=== PATIENT | male | born 1985 | race Caucasian/White ===

== ENCOUNTER 2018-05-27 03:38 | Inpatient (IN) | payer OTHER ==
[2018-05-27 04:04] LABS: ADD MAN DIFF? NO
[2018-05-27] MEDS: ONDANSETRON 4 MG INJ IV (04:06)
[2018-05-27] MEDS: SOD CHLORIDE 0.9% 1,000 ML IV ×2 (04:07→16:17)
[2018-05-27 04:11] LABS: WHITE BLOOD COUNT 10.8 10^3/ul (4.8-10.8)
[2018-05-27 04:11] LABS: BASOPHILS % 0.3 % (0.0-2.0); EOSINOPHILS # 0.1 10^3/ul (0.0-0.5); EOSINOPHILS % 0.5 % (0.0-7.0); HEMATOCRIT 49.1 % (42.0-52.0); HEMOGLOBIN 16.3 g/dl (14.0-18.0); LYMPHOCYTES % 27.6 % (15.0-51.0); MEAN CORPUSCULAR HEMOGLOBIN 29.2 pg (29.0-33.0); MEAN CORPUSCULAR HGB CONC 33.2 g/dl (32.0-37.0); MEAN CORPUSCULAR VOLUME 87.8 fl (82.0-101.0); MEAN PLATELET VOLUME 10.2 fl (7.4-10.4); MONOCYTE # 0.6 10^3/ul (0.3-0.9); MONOCYTES % 5.1 % (0.0-11.0); NEUTROPHILS % 65.5 % (39.0-77.0); PLATELET COUNT 262 10^3/UL (140-415); RED BLOOD COUNT 5.59 10^6/ul (4.70-6.10); RED CELL DISTRIBUTION WIDTH 13.2 % (11.5-14.5)
[2018-05-27] MEDS: ALBUTEROL 0.083% (NEB) 2.5 MG/3 ML AMP NEB (04:15)
[2018-05-27] MEDS: IPRATROPIUM (NEB) 0.5 MG/2.5 ML AMP NEB (04:15)
[2018-05-27 04:24] LABS: ALANINE AMINOTRANSFERASE 143 IU/L (13-69); ALBUMIN 4.5 g/dl (3.3-4.9); ALBUMIN/GLOBULIN RATIO 1.45; ALKALINE PHOSPHATASE 101 IU/L (42-121); ANION GAP 17 (5-13); ASPARTATE AMINO TRANSFERASE 115 IU/L (15-46); BILIRUBIN,INDIRECT 0.2 mg/dl (0-1.1); BILIRUBIN,TOTAL 0.2 mg/dl (0.2-1.3); BLOOD UREA NITROGEN 12 mg/dl (7-20); CALCIUM 9.2 mg/dl (8.4-10.2); CARBON DIOXIDE 23 mmol/L (21-31); CHLORIDE 102 mmol/L (97-110); Estimated GFR > 60 mL/min (>60); GLUCOSE 180 mg/dl (70-220); POTASSIUM 3.5 mmol/L (3.5-5.1); SODIUM 142 mmol/L (135-144); TOTAL PROTEIN 7.6 g/dl (6.1-8.1)
[2018-05-27 04:37] LABS: ACETAMINOPHEN < 10.0 ug/ml (10.0-30.0); SALICYLATE < 1.0 mg/dl (5.0-30.0)
[2018-05-27 04:42] LABS: AADO2 Arterial 587.4 mmHg (7.0-24.0); Allen Test ACCEPTAB; Arterial Base Excess -7.4 mmol/L (-3.0-3); Arterial Blood Gas Oxygen Sat 87.5 mmHG (95.0-98.0); Arterial COHb 0.3 % (0.0-3.0); Arterial Fraction of Oxyhgb 86.9 % (93.0-99.0); Arterial HCO3 21.8 mmol/L (22.0-26.0); Arterial MetHb 0.4 % (0.0-1.5); Arterial pCO2 57.9 mmhg (35-45); MODE MASK - NRB; Site Right Radial
[2018-05-27] MEDS: PIPER-TAZO 3.375 GM IV (PMX) 100 ML IVPB (04:55)
[2018-05-27] MEDS: NALOXONE 2 MG SYG IV (04:59)
[2018-05-27] MEDS ORDERED: ACETAMINOPHEN 325 MG TAB PO (05:00)
[2018-05-27] MEDS ORDERED: ONDANSETRON 4 MG INJ IV ×2 (05:00→06:00)
[2018-05-27] MEDS: NALOXONE 2 MG/2 ML SYG 2 MG in DEXTROSE 5% 498 ML IV (05:32)
[2018-05-27] MEDS: VANCOMYCIN 1 GM (PMX) 250 ML IVPB (05:48)
[2018-05-27] MEDS ORDERED: BISACODYL (EC) 5 MG TAB PO (06:00)
[2018-05-27] MEDS ORDERED: ALBUTEROL 0.083% (NEB) 2.5 MG/3 ML AMP NEB (06:00)
[2018-05-27] MEDS ORDERED: IPRATROPIUM (NEB) 0.5 MG/2.5 ML AMP NEB (06:00)
[2018-05-27] MEDS ORDERED: DOCUSATE SODIUM 100 MG CAP PO (06:00)
[2018-05-27] MEDS: PANTOPRAZOLE 40 MG INJ IV (06:36)
[2018-05-27] MEDS: MULTIVITAMINS 10 ML, THIAMINE 100 MG, FOLIC ACID 1 MG in SOD CHLORIDE 0.9% 1,000 ML IVPB ×2 (06:37→08:16)
[2018-05-27 06:43] LABS: ADD UMIC YES; UR ASCORBIC ACID 40 mg/dL (NEGATIVE); UR BILIRUBIN (Dip) NEGATIVE (NEGATIVE); UR BLOOD (Dip) NEGATIVE (NEGATIVE); UR CLARITY SLIGHTLY CLOUDY (CLEAR); UR COLOR YELLOW (YELLOW); UR GLUCOSE (Dip) NEGATIVE (NEGATIVE); UR KETONES (Dip) NEGATIVE (NEGATIVE); UR LEUKOCYTE ESTERASE (Dip) NEGATIVE Leu/ul (NEGATIVE); UR MUCUS FEW /HPF (NONE SEEN); UR NITRITE (Dip) NEGATIVE (NEGATIVE); UR RBC 0 /HPF (0-5); UR SPECIFIC GRAVITY (Dip) 1.023 (1.003-1.030); UR TOTAL PROTEIN (Dip) 1+ mg/dl (NEGATIVE); UR UROBILINOGEN (Dip) NEGATIVE (NEGATIVE); UR WBC 1 /HPF (0-5)
[2018-05-27 06:59] LABS: AMPHETAMINE/METHAMPHETAMINE Negative (NEGATIVE); BARBITURATES Negative (NEGATIVE); BENZODIAZEPINES Negative (NEGATIVE); CANNABINOIDS Negative (NEGATIVE); OPIATES Negative (NEGATIVE)
[2018-05-27 07:10] LABS: COCAINE Positive (NEGATIVE)
[2018-05-27 07:33] LABS: AADO2 Arterial 580.5 mmHg (7.0-24.0); Allen Test ACCEPTAB; Arterial Base Excess -3.9 mmol/L (-3.0-3); Arterial Blood Gas Oxygen Sat 92.6 mmHG (95.0-98.0); Arterial COHb 0.3 % (0.0-3.0); Arterial HCO3 24.5 mmol/L (22.0-26.0); Arterial MetHb 0.3 % (0.0-1.5); Arterial pCO2 56.6 mmhg (35-45); MODE MASK - NRB; Site Right Radial
[2018-05-27] MEDS ORDERED: NITROGLYCERIN 50 MG/D5W (PMX) 250 ML (09:46)
[2018-05-27 10:56] LABS: AADO2 Arterial 557.1 mmHg (7.0-24.0); Allen Test ACCEPTAB; Arterial Base Excess -2.1 mmol/L (-3.0-3); Arterial COHb 0.4 % (0.0-3.0); Arterial Fraction of Oxyhgb 96.2 % (93.0-99.0); Arterial HCO3 25.6 mmol/L (22.0-26.0); Arterial MetHb 0.4 % (0.0-1.5); Arterial pCO2 54.7 mmhg (35-45); MODE HFNC; Site Right Radial
[2018-05-27 13:41] LABS: AADO2 Arterial 564.3 mmHg (7.0-24.0); Allen Test ACCEPTAB; Arterial Base Excess -2.3 mmol/L (-3.0-3); Arterial Blood Gas Oxygen Sat 96.8 mmHG (95.0-98.0); Arterial COHb 0.2 % (0.0-3.0); Arterial Fraction of Oxyhgb 96.2 % (93.0-99.0); Arterial HCO3 24.6 mmol/L (22.0-26.0); Arterial MetHb 0.4 % (0.0-1.5); Arterial pCO2 49.7 mmhg (35-45); MODE HFNC; Site Right Radial
[2018-05-27 14:50] LABS: ANION GAP 8 (5-13); BLOOD UREA NITROGEN 18 mg/dl (7-20); CALCIUM 8.5 mg/dl (8.4-10.2); CARBON DIOXIDE 26 mmol/L (21-31); CHLORIDE 106 mmol/L (97-110); CREATININE 1.36 mg/dl (0.61-1.24); Estimated GFR > 60 mL/min (>60); GLUCOSE 122 mg/dl (70-220); POTASSIUM 5.2 mmol/L (3.5-5.1); SODIUM 140 mmol/L (135-144)
[2018-05-27] MEDS: NA POLYST SULFON 15 GM/60 ML BTL PO (16:52)
[2018-05-27] MEDS: CHLORDIAZEPOXIDE 25 MG CAP PO (21:58)
[2018-05-27] MEDS: DOCUSATE SODIUM 100 MG CAP PO (21:59)
[2018-05-27] MEDS: FAMOTIDINE 20 MG INJ IV (21:59)
[2018-05-28] MEDS: SOD CHLORIDE 0.9% 1,000 ML IV ×3 (03:09→22:00)
[2018-05-28] MEDS: MULTIVITAMINS THERAPEUTIC TAB PO (08:35)
[2018-05-28] MEDS: FAMOTIDINE 20 MG INJ IV (08:35)
[2018-05-28] MEDS: THIAMINE 100 MG TAB PO (08:35)
[2018-05-28] MEDS: DOCUSATE SODIUM 100 MG CAP PO ×2 (08:35→20:35)
[2018-05-28] MEDS: CHLORDIAZEPOXIDE 25 MG CAP PO ×3 (08:35→20:38)
[2018-05-28] MEDS: FOLIC ACID 1 MG TAB PO (08:36)
[2018-05-28 08:44] LABS: ADD MAN DIFF? NO
[2018-05-28 08:56] LABS: WHITE BLOOD COUNT 11.8 10^3/ul (4.8-10.8)
[2018-05-28 08:56] LABS: BASOPHILS % 0.3 % (0.0-2.0); EOSINOPHILS # 0.1 10^3/ul (0.0-0.5); EOSINOPHILS % 0.6 % (0.0-7.0); HEMATOCRIT 41.1 % (42.0-52.0); HEMOGLOBIN 13.4 g/dl (14.0-18.0); LYMPHOCYTES # 1.6 10^3/ul (0.8-2.9); LYMPHOCYTES % 13.5 % (15.0-51.0); MEAN CORPUSCULAR HEMOGLOBIN 29.1 pg (29.0-33.0); MEAN CORPUSCULAR HGB CONC 32.6 g/dl (32.0-37.0); MEAN CORPUSCULAR VOLUME 89.3 fl (82.0-101.0); MEAN PLATELET VOLUME 10.6 fl (7.4-10.4); MONOCYTE # 0.6 10^3/ul (0.3-0.9); MONOCYTES % 4.7 % (0.0-11.0); NEUTROPHIL # 9.5 10^3/ul (1.6-7.5); NEUTROPHILS % 80.3 % (39.0-77.0); PLATELET COUNT 176 10^3/UL (140-415); POSITIVE DIFF @See below; RED CELL DISTRIBUTION WIDTH 13.4 % (11.5-14.5)
[2018-05-28 09:14] LABS: ANION GAP 7 (5-13); BLOOD UREA NITROGEN 21 mg/dl (7-20); CALCIUM 8.4 mg/dl (8.4-10.2); CARBON DIOXIDE 29 mmol/L (21-31); CHLORIDE 101 mmol/L (97-110); CREATININE 1.76 mg/dl (0.61-1.24); Estimated GFR 45 mL/min (>60); GLUCOSE 114 mg/dl (70-220); PHOSPHORUS 3.7 mg/dl (2.5-4.9); POTASSIUM 3.6 mmol/L (3.5-5.1); SODIUM 137 mmol/L (135-144)
[2018-05-28 09:18] LABS: ALANINE AMINOTRANSFERASE 85 IU/L (13-69); ALBUMIN 3.4 g/dl (3.3-4.9); ALKALINE PHOSPHATASE 60 IU/L (42-121); ASPARTATE AMINO TRANSFERASE 41 IU/L (15-46); BILIRUBIN,INDIRECT 0.9 mg/dl (0-1.1); BILIRUBIN,TOTAL 0.9 mg/dl (0.2-1.3); TOTAL PROTEIN 5.8 g/dl (6.1-8.1)
[2018-05-28 10:29] LABS: ANISOCYTOSIS 1+ (0-0); BAND NEUTROPHILS #M 3.8 10^3/ul (0.0-0.6); BAND NEUTROPHILS % (M) 33 % (0-4); EOSINOPHILS % (M) 1 % (0-7); LYMPHOCYTES #M 1.7 10^3/ul (0.8-2.9); LYMPHOCYTES % (M) 15 % (15-51); MICROCYTOSIS 1+ (0-0); MONOCYTE #M 0.4 10^3/ul (0.3-0.9); MONOCYTES % (M) 4 % (0-11); PLATELET ESTIMATE NORMAL; POIKILOCYTOSIS 1+ (0-0); REACTIVE LYMPHOCYTES #M 0.3 10^3/ul (0.0-0.0); REACTIVE LYMPHOCYTES% (M) 3 % (0-0); SEG NEUT #M 5.6 10^3/ul (1.6-7.5); SEGMENTED NEUTROPHILS (M) % 44 % (39-77); SMUDGE%M 12 % (0-0)
[2018-05-28 13:02] LABS: ADD UMIC YES; UR ASCORBIC ACID NEGATIVE (NEGATIVE); UR BILIRUBIN (Dip) NEGATIVE (NEGATIVE); UR BLOOD (Dip) 1+ mg/dL (NEGATIVE); UR CLARITY CLEAR (CLEAR); UR COLOR STRAW (YELLOW); UR GLUCOSE (Dip) NEGATIVE (NEGATIVE); UR KETONES (Dip) NEGATIVE (NEGATIVE); UR LEUKOCYTE ESTERASE (Dip) NEGATIVE Leu/ul (NEGATIVE); UR NITRITE (Dip) NEGATIVE (NEGATIVE); UR RBC 0 /HPF (0-5); UR SPECIFIC GRAVITY (Dip) 1.004 (1.003-1.030); UR TOTAL PROTEIN (Dip) NEGATIVE (NEGATIVE); UR UROBILINOGEN (Dip) NEGATIVE (NEGATIVE); UR WBC 1 /HPF (0-5)
[2018-05-28 13:17] LABS: SODIUM,URINE RANDOM 58 mmol/L (30-90)
[2018-05-28 13:17] LABS: CREATININE,URINE RANDOM 28.89 mg/dl (20-370)
[2018-05-28] MEDS: PIPER-TAZO 2.25 GM (PMX) 50 ML IVPB ×2 (13:31→21:57)
[2018-05-28] MEDS: FAMOTIDINE 20 MG TAB PO (20:35)
[2018-05-29] MEDS: ACETAMINOPHEN 325 MG TAB PO (04:21)
[2018-05-29] MEDS: PIPER-TAZO 2.25 GM (PMX) 50 ML IVPB ×3 (05:57→21:55)
[2018-05-29 06:27] LABS: ADD MAN DIFF? NO
[2018-05-29 06:29] LABS: BASOPHILS % 0.3 % (0.0-2.0); EOSINOPHILS # 0.1 10^3/ul (0.0-0.5); HEMATOCRIT 39.4 % (42.0-52.0); LYMPHOCYTES # 1.1 10^3/ul (0.8-2.9); LYMPHOCYTES % 9.8 % (15.0-51.0); MEAN CORPUSCULAR HEMOGLOBIN 29.4 pg (29.0-33.0); MEAN CORPUSCULAR VOLUME 89.1 fl (82.0-101.0); MEAN PLATELET VOLUME 10.5 fl (7.4-10.4); MONOCYTE # 0.6 10^3/ul (0.3-0.9); MONOCYTES % 5.5 % (0.0-11.0); NEUTROPHIL # 9.5 10^3/ul (1.6-7.5); NEUTROPHILS % 82.7 % (39.0-77.0); PLATELET COUNT 176 10^3/UL (140-415); RED BLOOD COUNT 4.42 10^6/ul (4.70-6.10)
[2018-05-29 06:29] LABS: WHITE BLOOD COUNT 11.5 10^3/ul (4.8-10.8)
[2018-05-29 06:54] LABS: ANION GAP 8 (5-13); BLOOD UREA NITROGEN 18 mg/dl (7-20); CALCIUM 8.9 mg/dl (8.4-10.2); CARBON DIOXIDE 26 mmol/L (21-31); CHLORIDE 105 mmol/L (97-110); CREATININE 1.51 mg/dl (0.61-1.24); Estimated GFR 54 mL/min (>60); GLUCOSE 117 mg/dl (70-220); POTASSIUM 3.6 mmol/L (3.5-5.1); SODIUM 139 mmol/L (135-144)
[2018-05-29] MEDS: CHLORDIAZEPOXIDE 25 MG CAP PO ×3 (09:00→21:54)
[2018-05-29] MEDS: DOCUSATE SODIUM 100 MG CAP PO ×2 (09:03→21:54)
[2018-05-29] MEDS: FAMOTIDINE 20 MG TAB PO ×2 (09:03→21:54)
[2018-05-29] MEDS: FOLIC ACID 1 MG TAB PO (09:03)
[2018-05-29] MEDS: THIAMINE 100 MG TAB PO (09:03)
[2018-05-29] MEDS: MULTIVITAMINS THERAPEUTIC TAB PO (09:04)
[2018-05-29] MEDS: INFLUENZA VIRUS VACCINE 0.5 ML (DISPENSING) IM* (10:00)
[2018-05-29] MEDS: SOD CHLORIDE 0.9% 1,000 ML IV ×2 (11:03→17:13)
[2018-05-30] MEDS: SOD CHLORIDE 0.9% 1,000 ML IV (00:25)
[2018-05-30] MEDS: PIPER-TAZO 2.25 GM (PMX) 50 ML IVPB (05:40)
[2018-05-30 06:58] LABS: ADD MAN DIFF? NO
[2018-05-30 07:01] LABS: BASOPHILS % 0.3 % (0.0-2.0); EOSINOPHILS # 0.2 10^3/ul (0.0-0.5); EOSINOPHILS % 1.5 % (0.0-7.0); HEMATOCRIT 39.9 % (42.0-52.0); HEMOGLOBIN 13.6 g/dl (14.0-18.0); LYMPHOCYTES # 1.5 10^3/ul (0.8-2.9); LYMPHOCYTES % 12.3 % (15.0-51.0); MEAN CORPUSCULAR HEMOGLOBIN 29.4 pg (29.0-33.0); MEAN CORPUSCULAR HGB CONC 34.1 g/dl (32.0-37.0); MEAN CORPUSCULAR VOLUME 86.4 fl (82.0-101.0); MEAN PLATELET VOLUME 10.5 fl (7.4-10.4); MONOCYTE # 0.9 10^3/ul (0.3-0.9); MONOCYTES % 7.1 % (0.0-11.0); NEUTROPHIL # 9.3 10^3/ul (1.6-7.5); NEUTROPHILS % 77.7 % (39.0-77.0); PLATELET COUNT 220 10^3/UL (140-415); RED BLOOD COUNT 4.62 10^6/ul (4.70-6.10); RED CELL DISTRIBUTION WIDTH 12.7 % (11.5-14.5)
[2018-05-30 07:34] LABS: ANION GAP 13 (5-13); BLOOD UREA NITROGEN 14 mg/dl (7-20); CALCIUM 9.2 mg/dl (8.4-10.2); CARBON DIOXIDE 25 mmol/L (21-31); CHLORIDE 104 mmol/L (97-110); CREATININE 1.19 mg/dl (0.61-1.24); Estimated GFR > 60 mL/min (>60); GLUCOSE 106 mg/dl (70-220); POTASSIUM 3.8 mmol/L (3.5-5.1); SODIUM 142 mmol/L (135-144)
[2018-05-30] MEDS: CHLORDIAZEPOXIDE 25 MG CAP PO ×2 (09:00→13:00)
[2018-05-30] MEDS: THIAMINE 100 MG TAB PO (09:06)
[2018-05-30] MEDS: FAMOTIDINE 20 MG TAB PO (09:06)
[2018-05-30] MEDS: MULTIVITAMINS THERAPEUTIC TAB PO (09:06)
[2018-05-30] MEDS: DOCUSATE SODIUM 100 MG CAP PO (09:07)
[2018-05-30] MEDS: FOLIC ACID 1 MG TAB PO (09:07)
[2018-05-30 14:50] LABS: CREATININE, RANDOM URINE 30 mg/dL (20-320); MICROALBUMIN 0.9 mg/dL; MICROALBUMIN/CREATININE RATIO 30 (<30)
[2018-05-30] MEDS ORDERED: PIPER-TAZO 3.375 GM IV (PMX) 100 ML IVPB (18:00)
== END 2018-05-30 17:54 | disposition home or self-care (01) | DRG 917 ==
LOC: E/R 03:38 → ICU 04:46 → TEL 18:35
DX: T40.5X1A Poisoning by cocaine, accidental (unintentional), initial encounter (principal); J96.01 Acute respiratory failure with hypoxia; G92 Toxic encephalopathy; J96.02 Acute respiratory failure with hypercapnia; J69.0 Pneumonitis due to inhalation of food and vomit; E87.2 Acidosis; N17.9 Acute kidney failure, unspecified; D64.9 Anemia, unspecified; D69.6 Thrombocytopenia, unspecified; E87.5 Hyperkalemia; T51.0X1A Toxic effect of ethanol, accidental (unintentional), initial encounter; Y90.4 Blood alcohol level of 80-99 mg/100 ml; R00.0 Tachycardia, unspecified
CPT/HCPCS: 36415; 36600; 71045; 71250; 76775; 80048; 80053; 80076; 80307; 81001; 81003; 82043; 82803; 83735; 84100; 84155; 84300; 85025; 87040; 87081; 90686; 93005; 94664; 96361; 96374; 99291-25